=== PATIENT | male | born 1935 | race Caucasian/White ===

== ENCOUNTER 2016-11-06 19:26 | Emergency (ER) | payer MEDICARE, OTHER ==
[2016-11-06 19:58] LABS: BASO # 0.1 10_X3_uL (0.0-0.1); BASO % 0.6 % (0.2-1.2); EOS # 0.9 10_X3_uL (0.0-0.5); EOS % 4.9 % (0.8-7.0); GRAN # 9.3 10_X3_uL (1.8-5.4); HEMATOCRIT 42.6 % (40-51); HEMOGLOBIN 13.8 g/dL (13.7-17.5); LYMPH # 7.5 10_X3_uL (1.3-3.6); LYMPH % 39.6 % (21.8-53.1); MEAN CORPUSCULAR HEMOGLOBIN 29.3 pg (27.0-33.0); MEAN CORPUSCULAR HGB CONC 32.4 g/dL (32.0-36.0); MEAN CORPUSCULAR VOLUME 90.4 fL (79-92); MEAN PLATELET VOLUME 11.4 fl (7.5-11.5); MONO # 1.1 10_X3_uL (0.3-0.8); MONO % 5.9 % (5.3-12.2); PLATELET COUNT 244 x10_3/uL (163-337); RED BLOOD COUNT 4.71 x10_6/uL (4.6-6.1); RED CELL DISTRIBUTION WIDTH 16.5 % (11.6-14.4); WHITE BLOOD COUNT 19.1 x10_3/uL (4.2-9.1)
[2016-11-06 20:13] LABS: URINE BILIRUBIN NEGATIVE (NEGATIVE); URINE BLOOD TRACE (NEGATIVE); URINE GLUCOSE (UA) 50 mg/dL (NORMAL); URINE KETONE NEGATIVE (NEGATIVE); URINE LEUKOCYTE ESTERASE NEGATIVE (NEGATIVE); URINE NITRATE NEGATIVE (NEGATIVE); URINE PROTEIN 3+ (NEGATIVE); UROBILINOGEN NORMAL mg/dL (<1.0)
[2016-11-06 20:13] LABS: ARTERIAL BLD GAS O2 SATURATION 97.2 % (94-98); ARTERIAL BLOOD GAS BASE EXCESS -7.7 mmol/L (-2.0-3.0); ARTERIAL BLOOD GAS HCO3 20.9 mmol/L (22-26); ARTERIAL BLOOD GAS PCO2 57.5 mmHg (35-48)
[2016-11-06 20:20] LABS: ALBUMIN 3.4 gm/dL (3.4-5.0); BILIRUBIN,TOTAL 0.61 mg/dL (0.0-1.0); CALCIUM 8.3 mg/dL (8.7-10.7); CREATININE 1.9 mg/dL (0.6-1.3); POTASSIUM 4.2 mmol/L (3.5-5.1)
[2016-11-06 20:26] LABS: URINE BACTERIA TRACE (NONE SEEN); URINE RBC 0-5 /[HPF] (0-2); URINE SQUAMOUS EPITHELIAL CELL 0-10 /[HPF] (NONE SEEN); URINE WBC 0-5 /[HPF] (0-3)
[2016-11-06 20:27] LABS: URINE AMORPHOUS SEDIMENT 3+
[2016-11-06 20:32] LABS: ARTERIAL BLOOD GAS pH 7.19 (7.35-7.45)
== END 2016-11-06 22:48 | disposition short-term general hospital (02) ==
LOC: ER 19:26
PROVIDERS: Emergency Medicine
DX: J96.00 Acute respiratory failure, unspecified whether with hypoxia or hypercapnia (principal); I50.1 Left ventricular failure, unspecified; D72.829 Elevated white blood cell count, unspecified; N28.9 Disorder of kidney and ureter, unspecified; Z88.0 Allergy status to penicillin; Z79.899 Other long term (current) drug therapy
CPT/HCPCS: 31500; 36415; 36600; 71010; 80053; 81001; 82550; 82553; 82803; 83605; 83880; 85025; 87040; 92950; 93005; 94002; 96365; 96366; 96375; 99070; 99285; 99285-25